=== PATIENT | male | born 1940 | race African-American/Black ===

== ENCOUNTER 2017-10-06 14:44 | Emergency (ER) | payer OTHER ==
[~2017-10-06] VITALS: Ht 180.3 cm; Wt 73.0 kg
[~2017-10-06 14:44] MED LIST: ESOM20CA PO; FINA5TAB11 PO; SUPHEDRIN; TAMS0.4C31 PO
[2017-10-06] MEDS ORDERED: SODIUM CHLORIDE 0.9% 1,000 ML IV ONE (15:20)
[2017-10-06 15:28] LABS: HEMATOCRIT. 31.1 % (42.0-52.0); HEMOGLOBIN. 10.4 g/dL (14.0-18.0); MEAN CORPUSCULAR HEMOGLOBIN 29.9 pg (28.0-32.0); MEAN CORPUSCULAR VOLUME 89.9 fL (80.0-94.0); MEAN PLATELET VOLUME 7.6 fl (7.4-10.4); PLATELET 297 x1000/uL (130-400); RED BLOOD CELL COUNT 3.46 mill/uL (4.7-6.1); RED CELL DISTRIBUTION WIDTH 13.2 % (11.6-14.6)
[2017-10-06 15:30] LABS: CHLORIDE 101 mEq/L (98-107)
[2017-10-06 15:32] LABS: INR 1.1; PARTIAL THROMBOPLASTIN TIME 27.6 sec (23.4-31.0); PROTHROMBIN TIME 11.4 sec (9.4-11.6)
[2017-10-06 15:50] LABS: PLATELET ESTIMATE NORMAL
[2017-10-06] MEDS ORDERED: IOHEXOL-300 100 ML BOTTLE ONE (18:45)
[2017-10-06] MEDS ORDERED: LEVOFLOXACIN 750MG PREMIX 150 ML IV ONE (19:37)
[2017-10-06 22:48] VITALS: BP 138/88
== END 2017-10-06 23:39 | disposition home or self-care (01) ==
LOC: ER 14:44
DX: R13.10 Dysphagia, unspecified (principal); R47.02 Dysphasia; D64.9 Anemia, unspecified; D72.829 Elevated white blood cell count, unspecified; Z92.3 Personal history of irradiation; Z85.89 Personal history of malignant neoplasm of other organs and systems; Z87.891 Personal history of nicotine dependence
CPT/HCPCS: 36415; 70491; 71045; 80053; 83690; 84146; 84484; 85025; 85610; 85730; 87040; 93005; 96361; 96365; 96366; 99285; J1956; J7030; Q9967

== ENCOUNTER 2018-04-28 17:55 | Inpatient (IN) | payer OTHER ==
[~2018-04-28] VITALS: Ht 172.7 cm; Wt 57.2 kg
[~2018-04-28 17:55] MED LIST changes: +ASPI-1079 PO; +ATOR-2 MT; +FERR-71 MT; -FINA5TAB11 PO; +FLUD0.1T MT; +LEVO75TA MT; +MIDO10TA MT; +MULT-1146 MT; +POTA99TA4 MT; +SAW/1TAB2 MT; +SENN1TAB8 MT; +SODI1TAB3 MT; -SUPHEDRIN; -TAMS0.4C31 PO
[2018-04-28 19:12] LABS: BASOPHILS % 0.1 % (0.0-2.0); HEMATOCRIT. 23.4 % (42.0-52.0); HEMOGLOBIN. 7.8 g/dL (14.0-18.0); LYMPHOCYTES % 7.4 % (20.0-50.0); MEAN CORPUSCULAR HEMOGLOBIN 29.9 pg (28.0-32.0); MEAN CORPUSCULAR VOLUME 89.1 fL (80.0-94.0); MEAN PLATELET VOLUME 9.3 fl (7.4-10.4); MONOCYTES % 7.3 % (2.0-8.0); NEUTROPHILS % 85.2 % (40.0-76.0); PLATELET 164 x1000/uL (130-400); RED BLOOD CELL COUNT 2.62 mill/uL (4.7-6.1); RED CELL DISTRIBUTION WIDTH 15.4 % (11.6-14.6)
[2018-04-28 19:19] LABS: CHLORIDE 98 mEq/L (98-107)
[2018-04-28] MEDS ORDERED: ENOXAPARIN 80MG/0.8ML SYR SUBCUT ONE (19:45)
[2018-04-28] MEDS ORDERED: ASPIRIN 325MG EC TABLET PO ONE (19:45)
[2018-04-29] VITALS (31 sets, daily range): BP systolic 94–149; BP diastolic 46–99
[2018-04-29] MEDS ORDERED: ASPIRIN 325MG TABLET PO NR (00:15)
[2018-04-29] MEDS: NITROGLYCERIN OINT 1GM/INCH UDPKT TD SCH ×3 (06:03→21:35)
[2018-04-29] MEDS ORDERED: IPRATROPIUM/ALBUTEROL 0.5-3(2.5)MG/3ML NEB HHN PRN (08:15)
[2018-04-29] MEDS: GUAIFENESIN 600MG ER TABLET PO SCH ×2 (08:51→21:35)
[2018-04-29] MEDS: FUROSEMIDE 40MG/4ML VIAL IVP SCH ×2 (08:52→16:28)
[2018-04-29] MEDS ORDERED: ENOXAPARIN 40MG/0.4ML SYR SUBCUT SCH (09:00)
[2018-04-29] MEDS ORDERED: METOPROLOL TARTRATE 25MG TABLET PO SCH (09:00)
[2018-04-29 09:09] LABS: BASOPHILS % 0.2 % (0.0-2.0); EOSINOPHILS % 0.3 % (0.0-5.0); HEMATOCRIT. 25.5 % (42.0-52.0); HEMOGLOBIN. 8.6 g/dL (14.0-18.0); LYMPHOCYTES % 15.2 % (20.0-50.0); MEAN CORPUSCULAR HEMOGLOBIN 29.7 pg (28.0-32.0); MEAN CORPUSCULAR VOLUME 88.5 fL (80.0-94.0); MEAN PLATELET VOLUME 9.5 fl (7.4-10.4); MONOCYTES % 9.3 % (2.0-8.0); PLATELET 147 x1000/uL (130-400); RED BLOOD CELL COUNT 2.88 mill/uL (4.7-6.1); RED CELL DISTRIBUTION WIDTH 14.9 % (11.6-14.6)
[2018-04-29 09:41] LABS: CHLORIDE 100 mEq/L (98-107)
[2018-04-29] MEDS: IRON SUCROSE COMPLEX 100 MG/5 ML ML IV SCH (10:06)
[2018-04-29 10:07] LABS: CREATINE KINASE 89 IU/L (39-308)
[2018-04-29] MEDS: OMEPRAZOLE 20MG CAPSULE EXTENDED RELEASE PO SCH (11:31)
[2018-04-29] MEDS: LEVOTHYROXINE SODIUM 75MCG TABLET PO SCH (11:31)
[2018-04-29] MEDS: FLUDROCORTISONE ACETATE 0.1MG TABLET PO SCH (11:33)
[2018-04-29 12:18] LABS: CREATINE KINASE MB FRACTION < 1.0 ng/mL (0.5-3.6)
[2018-04-29 12:47] LABS: CLARITY URINE CLOUDY (CLEAR); COLOR URINE YELLOW (YELLOW); KETONES URINE NEGATIVE (NEGATIVE); LEUKOCYTE ESTERASE URINE NEGATIVE (NEGATIVE); NITRITE URINE NEGATIVE (NEGATIVE); OCCULT BLOOD URINE NEGATIVE (NEGATIVE); PROTEIN URINE 1+ (NEGATIVE); SPECIFIC GRAVITY URINE 1.017 (1.005-1.030); UROBILINOGEN URINE 0.2 E.U./dL (0.2-1.0)
[2018-04-29 13:01] LABS: *AMPHETAMINES SCREEN URINE NEGATIVE (NEGATIVE); *BARBITURATES SCREEN URINE NEGATIVE (NEGATIVE); *BENZODIAZEPINES SCREEN URINE NEGATIVE (NEGATIVE); *COCAINE SCREEN URINE NEGATIVE (NEGATIVE); CANNABINOID URINE SCREEN NEGATIVE (NEGATIVE); METHADONE URINE SCREEN NEGATIVE (NEGATIVE); OPIATES URINE SCREEN NEGATIVE (NEGATIVE); PHENCYCLIDINE URINE SCREEN NEGATIVE (NEGATIVE)
[2018-04-29] MEDS: IPRATROPIUM/ALBUTEROL 0.5-3(2.5)MG/3ML NEB HHN SCH ×2 (16:58→20:10)
[2018-04-29] MEDS ORDERED: LEVOFLOXACIN 500MG PREMIX 100 ML IV NR (18:30)
[2018-04-30] VITALS (12 sets, daily range): BP systolic 102–152; BP diastolic 60–92
[2018-04-30] MEDS: IPRATROPIUM/ALBUTEROL 0.5-3(2.5)MG/3ML NEB HHN SCH ×4 (02:07→20:25)
[2018-04-30] MEDS: LEVOTHYROXINE SODIUM 75MCG TABLET PO SCH (06:19)
[2018-04-30] MEDS: OMEPRAZOLE 20MG CAPSULE EXTENDED RELEASE PO SCH (06:19)
[2018-04-30] MEDS: FUROSEMIDE 40MG/4ML VIAL IVP SCH ×2 (06:20→17:53)
[2018-04-30] MEDS: NITROGLYCERIN OINT 1GM/INCH UDPKT TD SCH ×3 (06:20→20:36)
[2018-04-30 07:31] LABS: BASOPHILS % 0.3 % (0.0-2.0); EOSINOPHILS % 0.5 % (0.0-5.0); HEMATOCRIT. 27.1 % (42.0-52.0); HEMOGLOBIN. 9.2 g/dL (14.0-18.0); LYMPHOCYTES % 14.8 % (20.0-50.0); MEAN CORPUSCULAR HEMOGLOBIN 29.7 pg (28.0-32.0); MEAN CORPUSCULAR VOLUME 87.5 fL (80.0-94.0); MEAN PLATELET VOLUME 8.7 fl (7.4-10.4); MONOCYTES % 8.7 % (2.0-8.0); NEUTROPHILS % 75.7 % (40.0-76.0); PLATELET 164 x1000/uL (130-400); RED CELL DISTRIBUTION WIDTH 14.6 % (11.6-14.6)
[2018-04-30 07:45] LABS: CHLORIDE 97 mEq/L (98-107)
[2018-04-30] MEDS: IRON SUCROSE COMPLEX 100 MG/5 ML ML IV SCH (08:52)
[2018-04-30] MEDS: GUAIFENESIN 600MG ER TABLET PO SCH ×2 (08:53→20:37)
[2018-04-30] MEDS: FLUDROCORTISONE ACETATE 0.1MG TABLET PO SCH (08:53)
[2018-04-30] MEDS ORDERED: POTASSIUM CHLORIDE 20MEQ TABLET SR PO SCH ×2 (09:15→21:00)
[2018-04-30] MEDS ORDERED: POTASSIUM CHLORIDE INJ 40 MEQ in DEXT 5% WATER 250 ML IV SCH (11:00)
[2018-04-30 12:08] LABS: PHOSPHORUS 2.7 mg/dL (2.5-4.9)
[2018-04-30] MEDS: ASPIRIN 81MG EC TABLET PO SCH (12:17)
[2018-04-30] MEDS: METOPROLOL TARTRATE 25MG TABLET PO SCH ×2 (12:17→20:37)
[2018-04-30] MEDS ORDERED: LACTULOSE 20G/30ML UDC PO PRN (14:15)
[2018-04-30] MEDS: DOCUSATE SODIUM 250MG CAPSULE PO SCH (17:53)
[2018-04-30] MEDS ORDERED: LEVOFLOXACIN 250MG PREMIX 50 ML IV SCH (18:00)
[2018-05-01] VITALS (11 sets, daily range): BP systolic 92–136; BP diastolic 67–85
[2018-05-01] MEDS: IPRATROPIUM/ALBUTEROL 0.5-3(2.5)MG/3ML NEB HHN SCH ×4 (01:27→20:46)
[2018-05-01] MEDS: NITROGLYCERIN OINT 1GM/INCH UDPKT TD SCH ×3 (06:00→21:04)
[2018-05-01] MEDS: LEVOTHYROXINE SODIUM 75MCG TABLET PO SCH (06:01)
[2018-05-01] MEDS: FUROSEMIDE 40MG/4ML VIAL IVP SCH ×2 (06:33→16:50)
[2018-05-01 06:40] LABS: BASOPHILS % 0.3 % (0.0-2.0); EOSINOPHILS % 1.1 % (0.0-5.0); HEMOGLOBIN. 9.7 g/dL (14.0-18.0); LYMPHOCYTES % 14.7 % (20.0-50.0); MEAN CORPUSCULAR HEMOGLOBIN 30.3 pg (28.0-32.0); MEAN CORPUSCULAR VOLUME 87.7 fL (80.0-94.0); MEAN PLATELET VOLUME 8.6 fl (7.4-10.4); NEUTROPHILS % 74.9 % (40.0-76.0); PLATELET 181 x1000/uL (130-400); RED CELL DISTRIBUTION WIDTH 14.8 % (11.6-14.6)
[2018-05-01 08:20] LABS: CHLORIDE 96 mEq/L (98-107)
[2018-05-01] MEDS ORDERED: POTASSIUM CHLORIDE 20MEQ TABLET SR PO SCH (09:00)
[2018-05-01] MEDS: IRON SUCROSE COMPLEX 100 MG/5 ML ML IV SCH (09:24)
[2018-05-01] MEDS: ASPIRIN 81MG EC TABLET PO SCH (09:25)
[2018-05-01] MEDS: FLUDROCORTISONE ACETATE 0.1MG TABLET PO SCH (09:25)
[2018-05-01] MEDS: METOPROLOL TARTRATE 25MG TABLET PO SCH ×2 (09:25→21:04)
[2018-05-01] MEDS: FAMOTIDINE 20MG TABLET PO SCH ×2 (09:25→16:50)
[2018-05-01] MEDS: GUAIFENESIN 600MG ER TABLET PO SCH ×2 (09:25→21:04)
[2018-05-01] MEDS: DOCUSATE SODIUM 250MG CAPSULE PO SCH (09:25)
[2018-05-01] MEDS: POTASSIUM CHLORIDE 20MEQ TABLET SR PO SCH ×3 (13:40→21:04)
[2018-05-01] MEDS: LEVOFLOXACIN 750MG PREMIX 150 ML IV SCH (18:19)
[2018-05-02] VITALS (12 sets, daily range): BP systolic 67–143; BP diastolic 43–88
[2018-05-02] MEDS: IPRATROPIUM/ALBUTEROL 0.5-3(2.5)MG/3ML NEB HHN SCH ×4 (02:45→20:30)
[2018-05-02 06:04] LABS: CHLORIDE 95 mEq/L (98-107)
[2018-05-02] MEDS: NITROGLYCERIN OINT 1GM/INCH UDPKT TD SCH (06:09)
[2018-05-02] MEDS: LEVOTHYROXINE SODIUM 75MCG TABLET PO SCH (06:09)
[2018-05-02] MEDS: FUROSEMIDE 40MG/4ML VIAL IVP SCH (06:09)
[2018-05-02 06:13] LABS: BASOPHILS % 0.4 % (0.0-2.0); EOSINOPHILS % 3.5 % (0.0-5.0); HEMATOCRIT. 30.3 % (42.0-52.0); HEMOGLOBIN. 10.3 g/dL (14.0-18.0); LYMPHOCYTES % 16.5 % (20.0-50.0); MEAN CORPUSCULAR HEMOGLOBIN 29.9 pg (28.0-32.0); MEAN CORPUSCULAR VOLUME 87.8 fL (80.0-94.0); MEAN PLATELET VOLUME 8.4 fl (7.4-10.4); MONOCYTES % 8.2 % (2.0-8.0); NEUTROPHILS % 71.4 % (40.0-76.0); PLATELET 189 x1000/uL (130-400); RED BLOOD CELL COUNT 3.45 mill/uL (4.7-6.1); RED CELL DISTRIBUTION WIDTH 14.4 % (11.6-14.6)
[2018-05-02] MEDS: METOPROLOL TARTRATE 25MG TABLET PO SCH ×2 (08:17→21:00)
[2018-05-02] MEDS: DOCUSATE SODIUM 250MG CAPSULE PO SCH (08:17)
[2018-05-02] MEDS: ASPIRIN 81MG EC TABLET PO SCH ×2 (08:18→17:20)
[2018-05-02] MEDS: FLUDROCORTISONE ACETATE 0.1MG TABLET PO SCH (08:18)
[2018-05-02] MEDS: FAMOTIDINE 20MG TABLET PO SCH ×2 (08:18→17:20)
[2018-05-02] MEDS: GUAIFENESIN 600MG ER TABLET PO SCH ×2 (08:18→21:31)
[2018-05-02] MEDS: POTASSIUM CHLORIDE 20MEQ TABLET SR PO SCH ×4 (08:18→21:31)
[2018-05-02] MEDS: ENOXAPARIN 40MG/0.4ML SYR SUBCUT SCH (12:12)
[2018-05-02] MEDS: LACTULOSE 20G/30ML UDC PO SCH ×3 (14:41→21:31)
[2018-05-02] MEDS ORDERED: POTASSIUM CHLORIDE 20MEQ TABLET SR PO NR (16:30)
[2018-05-02] MEDS: LEVOFLOXACIN 750MG PREMIX 150 ML IV SCH (17:20)
[2018-05-03] VITALS (14 sets, daily range): BP systolic 79–161; BP diastolic 34–89
[2018-05-03] MEDS: IPRATROPIUM/ALBUTEROL 0.5-3(2.5)MG/3ML NEB HHN SCH ×4 (01:59→21:10)
[2018-05-03] MEDS: LEVOTHYROXINE SODIUM 75MCG TABLET PO SCH (06:13)
[2018-05-03 06:30] LABS: BASOPHILS % 0.3 % (0.0-2.0); HEMATOCRIT. 32.7 % (42.0-52.0); HEMOGLOBIN. 10.9 g/dL (14.0-18.0); LYMPHOCYTES % 16.6 % (20.0-50.0); MEAN CORPUSCULAR HEMOGLOBIN 29.5 pg (28.0-32.0); MEAN CORPUSCULAR VOLUME 88.3 fL (80.0-94.0); MEAN PLATELET VOLUME 8.1 fl (7.4-10.4); MONOCYTES % 7.3 % (2.0-8.0); NEUTROPHILS % 71.8 % (40.0-76.0); PLATELET 195 x1000/uL (130-400); RED BLOOD CELL COUNT 3.71 mill/uL (4.7-6.1); RED CELL DISTRIBUTION WIDTH 14.9 % (11.6-14.6)
[2018-05-03 06:48] LABS: CHLORIDE 96 mEq/L (98-107)
[2018-05-03] MEDS: FAMOTIDINE 20MG TABLET PO SCH ×2 (08:15→17:50)
[2018-05-03] MEDS: DOCUSATE SODIUM 250MG CAPSULE PO SCH (08:15)
[2018-05-03] MEDS: ASPIRIN 81MG EC TABLET PO SCH ×2 (08:15→17:50)
[2018-05-03] MEDS: GUAIFENESIN 600MG ER TABLET PO SCH ×2 (08:15→21:31)
[2018-05-03] MEDS: FLUDROCORTISONE ACETATE 0.1MG TABLET PO SCH (08:15)
[2018-05-03] MEDS: POTASSIUM CHLORIDE 20MEQ TABLET SR PO SCH ×4 (08:15→21:31)
[2018-05-03] MEDS: METOPROLOL TARTRATE 25MG TABLET PO SCH ×2 (08:15→21:32)
[2018-05-03] MEDS: ENOXAPARIN 40MG/0.4ML SYR SUBCUT SCH (08:16)
[2018-05-03] MEDS: DEXT 5%/0.45% NACL 1000ML 1,000 ML IV SCH (10:15)
[2018-05-03] MEDS: LEVOFLOXACIN 250MG TABLET PO SCH (17:49)
[2018-05-04] VITALS (13 sets, daily range): BP systolic 79–159; BP diastolic 53–93
[2018-05-04] MEDS: DEXT 5%/0.45% NACL 1000ML 1,000 ML IV SCH ×2 (01:58→11:25)
[2018-05-04] MEDS: IPRATROPIUM/ALBUTEROL 0.5-3(2.5)MG/3ML NEB HHN SCH ×4 (02:29→20:10)
[2018-05-04] MEDS: LEVOTHYROXINE SODIUM 75MCG TABLET PO SCH (06:46)
[2018-05-04 07:23] LABS: BASOPHILS % 0.5 % (0.0-2.0); EOSINOPHILS % 4.2 % (0.0-5.0); HEMATOCRIT. 30.8 % (42.0-52.0); HEMOGLOBIN. 10.4 g/dL (14.0-18.0); LYMPHOCYTES % 16.9 % (20.0-50.0); MEAN CORPUSCULAR VOLUME 88.7 fL (80.0-94.0); MEAN PLATELET VOLUME 8.1 fl (7.4-10.4); MONOCYTES % 6.1 % (2.0-8.0); NEUTROPHILS % 72.3 % (40.0-76.0); PLATELET 188 x1000/uL (130-400); RED BLOOD CELL COUNT 3.48 mill/uL (4.7-6.1); RED CELL DISTRIBUTION WIDTH 14.9 % (11.6-14.6)
[2018-05-04] MEDS: METOPROLOL TARTRATE 25MG TABLET PO SCH (09:00)
[2018-05-04] MEDS: ASPIRIN 81MG EC TABLET PO SCH ×2 (09:07→16:18)
[2018-05-04] MEDS: DOCUSATE SODIUM 250MG CAPSULE PO SCH (09:07)
[2018-05-04] MEDS: GUAIFENESIN 600MG ER TABLET PO SCH ×2 (09:07→20:14)
[2018-05-04] MEDS: FAMOTIDINE 20MG TABLET PO SCH ×2 (09:07→16:18)
[2018-05-04] MEDS: ENOXAPARIN 40MG/0.4ML SYR SUBCUT SCH (09:07)
[2018-05-04] MEDS: POTASSIUM CHLORIDE 20MEQ TABLET SR PO SCH (09:07)
[2018-05-04] MEDS: FLUDROCORTISONE ACETATE 0.1MG TABLET PO SCH (09:07)
[2018-05-04 09:36] LABS: CHLORIDE 99 mEq/L (98-107)
[2018-05-04] MEDS ORDERED: BISACODYL 10MG SUPP PR NR (13:45)
[2018-05-04] MEDS ORDERED: LACTULOSE 20G/30ML UDC PO NR (13:45)
[2018-05-04] MEDS: HYDROCORTISONE 20MG TABLET PO SCH (16:18)
[2018-05-04] MEDS: LEVOFLOXACIN 250MG TABLET PO SCH (18:27)
[2018-05-04] MEDS ORDERED: HYDROCODONE/ACETAMINOPHEN 5/325MG TABLET PO PRN (19:45)
[2018-05-05] VITALS (10 sets, daily range): BP systolic 75–165; BP diastolic 50–95
[2018-05-05] MEDS: DEXT 5%/0.45% NACL 1000ML 1,000 ML IV SCH ×2 (01:39→12:15)
[2018-05-05] MEDS: IPRATROPIUM/ALBUTEROL 0.5-3(2.5)MG/3ML NEB HHN SCH ×3 (01:50→15:09)
[2018-05-05] MEDS: LEVOTHYROXINE SODIUM 75MCG TABLET PO SCH (06:11)
[2018-05-05] MEDS: ASPIRIN 81MG EC TABLET PO SCH (09:02)
[2018-05-05] MEDS: FLUDROCORTISONE ACETATE 0.1MG TABLET PO SCH (09:02)
[2018-05-05] MEDS: ENOXAPARIN 40MG/0.4ML SYR SUBCUT SCH (09:02)
[2018-05-05] MEDS: DOCUSATE SODIUM 250MG CAPSULE PO SCH (09:02)
[2018-05-05] MEDS: GUAIFENESIN 600MG ER TABLET PO SCH (09:02)
[2018-05-05] MEDS: FAMOTIDINE 20MG TABLET PO SCH (09:02)
[2018-05-05] MEDS: HYDROCORTISONE 20MG TABLET PO SCH (09:02)
[2018-05-05] MEDS ORDERED: NA PHOS,M-B/NA PHOS,DI-BA ENEMA 118ML PR NR (15:30)
[2018-05-05] MEDS ORDERED: SORBITOL 70% SOLN 30ML PO NR (15:30)
== END 2018-05-05 18:00 | DRG 280 ==
LOC: ER 17:55 → 3WST 19:39 → ENRESERV 22:51 → ER 23:23
PROVIDERS: ADMIT Internal Medicine; ATTEND Internal Medicine
PROC: 30233N1 Transfusion of Nonautologous Red Blood Cells into Peripheral Vein, Percutaneous Approach (ICD-10-PCS; principal; 2018-04-29)
DX: I21.4 Non-ST elevation (NSTEMI) myocardial infarction (principal); J18.9 Pneumonia, unspecified organism; I50.33 Acute on chronic diastolic (congestive) heart failure; J96.00 Acute respiratory failure, unspecified whether with hypoxia or hypercapnia; E43 Unspecified severe protein-calorie malnutrition; N17.0 Acute kidney failure with tubular necrosis; R64 Cachexia; E44.0 Moderate protein-calorie malnutrition; I13.0 Hypertensive heart and chronic kidney disease with heart failure and stage 1 through stage 4 chronic kidney disease, or unspecified chronic kidney disease; E27.40 Unspecified adrenocortical insufficiency; I42.9 Cardiomyopathy, unspecified; Z68.1 Body mass index [BMI] 19.9 or less, adult; E87.6 Hypokalemia; I95.1 Orthostatic hypotension; C10.9 Malignant neoplasm of oropharynx, unspecified; D64.9 Anemia, unspecified; I44.0 Atrioventricular block, first degree; E03.9 Hypothyroidism, unspecified; E78.5 Hyperlipidemia, unspecified; G90.9 Disorder of the autonomic nervous system, unspecified; I08.0 Rheumatic disorders of both mitral and aortic valves; I25.10 Atherosclerotic heart disease of native coronary artery without angina pectoris; R26.9 Unspecified abnormalities of gait and mobility; G90.8 Other disorders of autonomic nervous system; I48.91 Unspecified atrial fibrillation; K57.90 Diverticulosis of intestine, part unspecified, without perforation or abscess without bleeding; K59.09 Other constipation; N18.9 Chronic kidney disease, unspecified; N40.0 Benign prostatic hyperplasia without lower urinary tract symptoms; R13.10 Dysphagia, unspecified; Z79.899 Other long term (current) drug therapy; Z82.49 Family history of ischemic heart disease and other diseases of the circulatory system; Z85.818 Personal history of malignant neoplasm of other sites of lip, oral cavity, and pharynx; I25.2 Old myocardial infarction; Z87.01 Personal history of pneumonia (recurrent); Z87.891 Personal history of nicotine dependence; Z99.81 Dependence on supplemental oxygen; Z79.82 Long term (current) use of aspirin
CPT/HCPCS: 36415; 71045; 80048; 80305; 82088; 82550; 82553; 83735; 83880; 84100; 84145; 84244; 84443; 84484; 86850; 86900; 86920; 92523; 92610; 93005; 93306; 93970; 94640; 97162; 97166; 97530; 99285; J1650; J1940; J1956; J3480; J3490; J7050; J7060; J7620; P9016

== ENCOUNTER 2018-06-20 12:01 | Inpatient (IN) | payer MEDICARE, OTHER ==
[~2018-06-20] VITALS: Ht 167.6 cm; Wt 57.8 kg
[2018-06-20] MEDS ORDERED: SODIUM CHLORIDE 0.9% 1000ML BAG (SEPSIS BOLUS) IV ONE (13:15)
[2018-06-20 15:05] LABS: CLARITY URINE CLOUDY (CLEAR); COLOR URINE YELLOW (YELLOW); KETONES URINE NEGATIVE (NEGATIVE); LEUKOCYTE ESTERASE URINE 2+ (NEGATIVE); NITRITE URINE NEGATIVE (NEGATIVE); OCCULT BLOOD URINE 2+ (NEGATIVE); PH URINE 6.5 (4.5-8.0); PROTEIN URINE 2+ (NEGATIVE); SPECIFIC GRAVITY URINE 1.017 (1.005-1.030)
[2018-06-20 15:31] LABS: BASOPHILS % 0.2 % (0.0-2.0); EOSINOPHILS % 0.1 % (0.0-5.0); HEMOGLOBIN. 7.4 g/dL (14.0-18.0); LYMPHOCYTES % 11.4 % (20.0-50.0); MEAN CORPUSCULAR HEMOGLOBIN 29.4 pg (28.0-32.0); MEAN CORPUSCULAR VOLUME 87.7 fL (80.0-94.0); MEAN PLATELET VOLUME 9.3 fl (7.4-10.4); MONOCYTES % 6.7 % (2.0-8.0); NEUTROPHILS % 81.6 % (40.0-76.0); PLATELET 163 x1000/uL (130-400); RED BLOOD CELL COUNT 2.51 mill/uL (4.7-6.1); RED CELL DISTRIBUTION WIDTH 16.7 % (11.6-14.6)
[2018-06-20 15:38] LABS: CHLORIDE 101 mEq/L (98-107)
[2018-06-20 20:30] VITALS: BP 144/78
[2018-06-20 22:01] VITALS: BP 144/78
[2018-06-21] VITALS (12 sets, daily range): BP systolic 116–140; BP diastolic 59–80
[2018-06-21] MEDS: PANTOPRAZOLE 40MG DR TABLET PO SCH (06:42)
[2018-06-21] MEDS: LEVOTHYROXINE SODIUM 75MCG TABLET PO SCH (06:43)
[2018-06-21 07:16] LABS: MEAN CORPUSCULAR HEMOGLOBIN 29.3 pg (28.0-32.0); MEAN CORPUSCULAR VOLUME 85.5 fL (80.0-94.0); PLATELET 140 x1000/uL (130-400); RED BLOOD CELL COUNT 2.24 mill/uL (4.7-6.1)
[2018-06-21 08:06] LABS: HEMOGLOBIN 6.6 g/dL (14.0-18.0)
[2018-06-21 08:07] LABS: HEMATOCRIT 19.2 % (42.0-52.0)
[2018-06-21] MEDS ORDERED: POTASSIUM MT SCH (09:00)
[2018-06-21] MEDS ORDERED: POTASSIUM PO SCH (09:00)
[2018-06-21] MEDS: SODIUM CHLORIDE 1000MG TABLET PO SCH ×2 (09:00→17:00)
[2018-06-21] MEDS: MIDODRINE HCL 5MG TABLET PO SCH ×2 (09:46→17:00)
[2018-06-21] MEDS: FERROUS SULFATE 325MG TABLET PO SCH ×2 (09:46→17:00)
[2018-06-21] MEDS: FLUDROCORTISONE ACETATE 0.1MG TABLET PO SCH ×2 (09:46→17:00)
[2018-06-21] MEDS: ASPIRIN 81MG TABLET PO SCH (09:46)
[2018-06-21] MEDS: MULTIVITAMINS,THER W-MINERALS TABLET PO SCH (09:47)
[2018-06-21] MEDS: POTASSIUM CHLORIDE 20MEQ TABLET SR PO SCH (09:47)
[2018-06-21] MEDS ORDERED: INFLUENZA VIRUS VACCINE(AFLURIA) 0.5ML SYR IM ONE (12:00)
[2018-06-21 20:53] LABS: HEMOGLOBIN 8.1 g/dL (14.0-18.0)
[2018-06-21 20:59] LABS: INR 1.1
[2018-06-21] MEDS: ATORVASTATIN CALCIUM 40MG TABLET PO SCH (22:00)
[2018-06-22] VITALS: BP 132/78
[2018-06-22 04:00] VITALS: BP 119/64
[2018-06-22 06:26] LABS: BASOPHILS % 0.3 % (0.0-2.0); EOSINOPHILS % 0.5 % (0.0-5.0); HEMATOCRIT. 23.3 % (42.0-52.0); LYMPHOCYTES % 10.7 % (20.0-50.0); MEAN CORPUSCULAR HEMOGLOBIN 29.4 pg (28.0-32.0); MEAN CORPUSCULAR VOLUME 85.8 fL (80.0-94.0); MONOCYTES % 6.9 % (2.0-8.0); NEUTROPHILS % 81.6 % (40.0-76.0); PLATELET 161 x1000/uL (130-400); RED BLOOD CELL COUNT 2.71 mill/uL (4.7-6.1); RED CELL DISTRIBUTION WIDTH 15.7 % (11.6-14.6)
[2018-06-22 06:32] LABS: TOTAL IRON BINDING CAPACITY 216 ug/dL (250-450)
[2018-06-22] MEDS: PANTOPRAZOLE 40MG DR TABLET PO SCH (06:36)
[2018-06-22] MEDS: LEVOTHYROXINE SODIUM 75MCG TABLET PO SCH (06:36)
[2018-06-22 08:00] VITALS: BP 110/57
[2018-06-22] MEDS: DOCUSATE SODIUM 100MG CAPSULE PO SCH (09:10)
[2018-06-22] MEDS: MULTIVITAMINS,THER W-MINERALS TABLET PO SCH (09:10)
[2018-06-22] MEDS: ASPIRIN 81MG TABLET PO SCH (09:10)
[2018-06-22] MEDS: MIDODRINE HCL 5MG TABLET PO SCH ×2 (09:15→17:27)
[2018-06-22] MEDS: FERROUS SULFATE 325MG TABLET PO SCH ×2 (09:16→17:27)
[2018-06-22] MEDS: FLUDROCORTISONE ACETATE 0.1MG TABLET PO SCH ×2 (09:16→17:28)
[2018-06-22] MEDS: SODIUM CHLORIDE 1000MG TABLET PO SCH ×2 (09:16→17:28)
[2018-06-22] MEDS: POTASSIUM CHLORIDE 20MEQ TABLET SR PO SCH (09:16)
[2018-06-22 10:19] LABS: FOLIC ACID (FOLATE) SERUM 13.9 ng/mL (>5.38)
[2018-06-22 12:00] VITALS: BP 118/66
[2018-06-22] MEDS ORDERED: METOCLOPRAMIDE HCL 10MG/2ML VIAL IV SCH ×2 (12:00→14:00)
[2018-06-22 16:00] VITALS: BP 150/78
[2018-06-22] MEDS ORDERED: BISACODYL 5MG TABLET PO NR (16:15)
[2018-06-22] MEDS ORDERED: SORBITOL 70% SOLN 30ML PO NR (16:15)
[2018-06-22] MEDS ORDERED: METOCLOPRAMIDE HCL 10MG/2ML VIAL IV NR (16:15)
[2018-06-22] MEDS ORDERED: POTASSIUM CHLORIDE 20MEQ TABLET SR PO NR (16:15)
[2018-06-22 18:20] LABS: HEMOGLOBIN 9.3 g/dL (14.0-18.0)
[2018-06-22 20:00] VITALS: BP 155/82
[2018-06-22] MEDS ORDERED: IRON SUCROSE COMPLEX 100 MG in SODIUM CHLORIDE 0.9% 100 ML IV SCH (20:00)
[2018-06-22] MEDS: IRON SUCROSE COMPLEX 100 MG/5 ML ML IV SCH (20:43)
[2018-06-22] MEDS: ATORVASTATIN CALCIUM 40MG TABLET PO SCH (20:43)
[2018-06-23] VITALS: BP 120/74
[2018-06-23 04:00] VITALS: BP 132/73
[2018-06-23] MEDS ORDERED: METOCLOPRAMIDE HCL 10MG/2ML VIAL IV NR ×3 (05:00→12:00)
[2018-06-23] MEDS ORDERED: BISACODYL 5MG TABLET PO NR (05:00)
[2018-06-23] MEDS ORDERED: SORBITOL 70% SOLN 30ML PO NR (05:30)
[2018-06-23] MEDS: LEVOTHYROXINE SODIUM 75MCG TABLET PO SCH (05:51)
[2018-06-23] MEDS: PANTOPRAZOLE 40MG DR TABLET PO SCH (05:51)
[2018-06-23 07:23] LABS: CHLORIDE 106 mEq/L (98-107)
[2018-06-23 08:00] VITALS: BP 145/81
[2018-06-23 08:39] LABS: BG BASE EXCESS 3.3 mmol/L (-2.0-2.0); BG CARBOXYHEMOGLOBIN 0.3 % (0.5-1.5); BG FRACTION INSPIRED OXYGEN 28; BG HCO3 ACT 28.1 mmol/L (22.0-26.0); BG METHEMOGLOBIN 0.3 % (0.0-1.5); BG OXYHEMOGLOBIN 92.4 % (94.0-97.0); BG PCO2 43.7 mmHg (35.0-45.0); BG PH 7.426 (7.350-7.450); BG PO2 64.3 mmHg (75.0-100.0); BG SAMPLE SITE RIGHT RADIAL; BG VENT MODE NASAL CANNULA
[2018-06-23] MEDS: FLUDROCORTISONE ACETATE 0.1MG TABLET PO SCH ×2 (09:00→18:16)
[2018-06-23] MEDS: POTASSIUM CHLORIDE 20MEQ TABLET SR PO SCH (09:00)
[2018-06-23] MEDS: POLYETHYLENE GLYCOL 3350 (17GM) 1 DOSE PACK PO SCH (09:00)
[2018-06-23] MEDS ORDERED: BISACODYL 5MG TABLET PO PRN (09:00)
[2018-06-23] MEDS: SODIUM CHLORIDE 1000MG TABLET PO SCH ×2 (09:00→17:00)
[2018-06-23] MEDS: MIDODRINE HCL 5MG TABLET PO SCH ×2 (09:00→17:00)
[2018-06-23] MEDS: FERROUS SULFATE 325MG TABLET PO SCH ×2 (09:00→18:17)
[2018-06-23] MEDS: DOCUSATE SODIUM 100MG CAPSULE PO SCH (09:00)
[2018-06-23] MEDS: ASPIRIN 81MG TABLET PO SCH (09:00)
[2018-06-23] MEDS: MULTIVITAMINS,THER W-MINERALS TABLET PO SCH (09:00)
[2018-06-23 09:31] LABS: BASOPHILS % 0.3 % (0.0-2.0); EOSINOPHILS % 0.8 % (0.0-5.0); HEMATOCRIT. 24.9 % (42.0-52.0); HEMOGLOBIN. 8.4 g/dL (14.0-18.0); LYMPHOCYTES % 7.6 % (20.0-50.0); MEAN CORPUSCULAR HEMOGLOBIN 29.2 pg (28.0-32.0); MEAN CORPUSCULAR VOLUME 86.7 fL (80.0-94.0); MEAN PLATELET VOLUME 8.4 fl (7.4-10.4); MONOCYTES % 5.7 % (2.0-8.0); NEUTROPHILS % 85.6 % (40.0-76.0); PLATELET 191 x1000/uL (130-400); RED BLOOD CELL COUNT 2.87 mill/uL (4.7-6.1); RED CELL DISTRIBUTION WIDTH 16.3 % (11.6-14.6)
[2018-06-23] MEDS ORDERED: POTASSIUM CHLORIDE 20MEQ TABLET SR PO NR (11:30)
[2018-06-23] MEDS ORDERED: FUROSEMIDE 20MG/2ML VIAL IVP NR (11:30)
[2018-06-23 12:00] VITALS: BP 136/75
[2018-06-23] MEDS ORDERED: FENTANYL CITRATE/PF 50MCG/ML 2ML VIAL IV PRN (14:49)
[2018-06-23] MEDS ORDERED: MIDAZOLAM HCL 5 MG/5 ML VIAL IV PRN (14:50)
[2018-06-23] MEDS ORDERED: SIMETHICONE 40 MG/0.6 ML 30ML ONE (14:52)
[2018-06-23] MEDS ORDERED: MIDAZOLAM HCL 5 MG/5 ML VIAL ONE (14:55)
[2018-06-23] MEDS ORDERED: FENTANYL CITRATE/PF 50MCG/ML 2ML VIAL ONE (14:56)
[2018-06-23] MEDS: IPRATROPIUM/ALBUTEROL 0.5-3(2.5)MG/3ML NEB HHN SCH ×2 (15:40→21:59)
[2018-06-23] MEDS ORDERED: IPRATROPIUM/ALBUTEROL 0.5-3(2.5)MG/3ML NEB ONE (15:46)
[2018-06-23] MEDS ORDERED: SODIUM CHLORIDE 0.9% 10ML VIAL ONE (15:57)
[2018-06-23 17:29] LABS: HEMATOCRIT 27.6 % (42.0-52.0); HEMOGLOBIN 9.2 g/dL (14.0-18.0)
[2018-06-23] MEDS: IRON SUCROSE COMPLEX 100 MG/5 ML ML IV SCH (18:23)
[2018-06-23 20:00] VITALS: BP 154/83
[2018-06-23] MEDS: ATORVASTATIN CALCIUM 40MG TABLET PO SCH (21:17)
[2018-06-23] MEDS: MEROPENEM 1000MG in NORMAL SALINE 100ML IV SCH (21:18)
[2018-06-24] VITALS: BP 127/75
[2018-06-24] MEDS: IPRATROPIUM/ALBUTEROL 0.5-3(2.5)MG/3ML NEB HHN SCH ×4 (03:43→21:01)
[2018-06-24 04:00] VITALS: BP 127/70
[2018-06-24 04:50] LABS: CHLORIDE 105 mEq/L (98-107)
[2018-06-24 06:14] LABS: BASOPHILS % 0.1 % (0.0-2.0); EOSINOPHILS % 0.4 % (0.0-5.0); HEMATOCRIT. 22.7 % (42.0-52.0); HEMOGLOBIN. 7.8 g/dL (14.0-18.0); LYMPHOCYTES % 16.3 % (20.0-50.0); MEAN CORPUSCULAR HEMOGLOBIN 29.4 pg (28.0-32.0); MEAN CORPUSCULAR VOLUME 85.9 fL (80.0-94.0); MEAN PLATELET VOLUME 8.4 fl (7.4-10.4); MONOCYTES % 6.3 % (2.0-8.0); NEUTROPHILS % 76.9 % (40.0-76.0); PLATELET 185 x1000/uL (130-400); RED BLOOD CELL COUNT 2.65 mill/uL (4.7-6.1); RED CELL DISTRIBUTION WIDTH 15.9 % (11.6-14.6)
[2018-06-24] MEDS: PANTOPRAZOLE 40MG DR TABLET PO SCH (06:34)
[2018-06-24] MEDS: LEVOTHYROXINE SODIUM 75MCG TABLET PO SCH (06:34)
[2018-06-24 08:00] VITALS: BP 107/64
[2018-06-24] MEDS ORDERED: BARIUM SULFATE(VOLUMEN) 450 ML ORAL.SUSP ONE (08:05)
[2018-06-24] MEDS: POLYETHYLENE GLYCOL 3350 (17GM) 1 DOSE PACK PO SCH (09:00)
[2018-06-24] MEDS ORDERED: POTASSIUM CHLORIDE 20MEQ TABLET SR PO NR (09:45)
[2018-06-24] MEDS: MIDODRINE HCL 5MG TABLET PO SCH ×2 (10:18→17:39)
[2018-06-24] MEDS: POTASSIUM CHLORIDE 20MEQ TABLET SR PO SCH (10:18)
[2018-06-24] MEDS: FLUDROCORTISONE ACETATE 0.1MG TABLET PO SCH ×2 (10:19→17:41)
[2018-06-24] MEDS: DOCUSATE SODIUM 100MG CAPSULE PO SCH (10:19)
[2018-06-24] MEDS: ASPIRIN 81MG TABLET PO SCH (10:19)
[2018-06-24] MEDS: FERROUS SULFATE 325MG TABLET PO SCH ×2 (10:19→17:41)
[2018-06-24] MEDS: MEROPENEM 1000MG in NORMAL SALINE 100ML IV SCH ×2 (10:20→17:40)
[2018-06-24] MEDS: MULTIVITAMINS,THER W-MINERALS TABLET PO SCH (10:20)
[2018-06-24] MEDS: SODIUM CHLORIDE 1000MG TABLET PO SCH ×2 (10:21→17:41)
[2018-06-24] MEDS ORDERED: IOHEXOL-350 100 ML BOTTLE ONE (10:54)
[2018-06-24 12:00] VITALS: BP 143/81
[2018-06-24 16:00] VITALS: BP 128/70
[2018-06-24] MEDS: FINASTERIDE 5MG TABLET PO SCH (17:00)
[2018-06-24 20:00] VITALS: BP 134/75
[2018-06-24] MEDS: ATORVASTATIN CALCIUM 40MG TABLET PO SCH (22:18)
[2018-06-25] VITALS: BP 139/78
[2018-06-25] MEDS: IPRATROPIUM/ALBUTEROL 0.5-3(2.5)MG/3ML NEB HHN SCH ×3 (00:46→20:35)
[2018-06-25 04:00] VITALS: BP 135/72
[2018-06-25] MEDS: MEROPENEM 1000MG in NORMAL SALINE 100ML IV SCH ×2 (07:02→18:50)
[2018-06-25] MEDS: LEVOTHYROXINE SODIUM 75MCG TABLET PO SCH (07:02)
[2018-06-25] MEDS: PANTOPRAZOLE 40MG DR TABLET PO SCH (07:02)
[2018-06-25 08:00] VITALS: BP 138/85
[2018-06-25] MEDS: POLYETHYLENE GLYCOL 3350 (17GM) 1 DOSE PACK PO SCH (09:00)
[2018-06-25] MEDS: SODIUM CHLORIDE 1000MG TABLET PO SCH ×2 (09:15→21:14)
[2018-06-25] MEDS: FINASTERIDE 5MG TABLET PO SCH (09:16)
[2018-06-25] MEDS: POTASSIUM CHLORIDE 20MEQ TABLET SR PO SCH (09:16)
[2018-06-25] MEDS: FLUDROCORTISONE ACETATE 0.1MG TABLET PO SCH ×2 (09:16→18:51)
[2018-06-25] MEDS: MIDODRINE HCL 5MG TABLET PO SCH ×2 (09:16→18:50)
[2018-06-25] MEDS: MULTIVITAMINS,THER W-MINERALS TABLET PO SCH (09:16)
[2018-06-25] MEDS: FERROUS SULFATE 325MG TABLET PO SCH ×2 (09:16→18:50)
[2018-06-25] MEDS: ASPIRIN 81MG TABLET PO SCH (09:17)
[2018-06-25] MEDS: DOCUSATE SODIUM 100MG CAPSULE PO SCH (09:17)
[2018-06-25 12:00] VITALS: BP 152/90
[2018-06-25 12:16] LABS: BASOPHILS % 0.5 % (0.0-2.0); EOSINOPHILS % 3.2 % (0.0-5.0); HEMOGLOBIN. 8.4 g/dL (14.0-18.0); LYMPHOCYTES % 11.1 % (20.0-50.0); MEAN CORPUSCULAR HEMOGLOBIN 29.1 pg (28.0-32.0); MEAN PLATELET VOLUME 7.9 fl (7.4-10.4); MONOCYTES % 5.4 % (2.0-8.0); NEUTROPHILS % 79.8 % (40.0-76.0); PLATELET 222 x1000/uL (130-400)
[2018-06-25 12:30] LABS: PHOSPHORUS 2.6 mg/dL (2.5-4.9)
[2018-06-25 16:06] VITALS: BP 132/76
[2018-06-25 20:00] VITALS: BP 149/78
[2018-06-25] MEDS: ATORVASTATIN CALCIUM 40MG TABLET PO SCH (21:14)
[2018-06-26] VITALS: BP 162/92
[2018-06-26] MEDS: IPRATROPIUM/ALBUTEROL 0.5-3(2.5)MG/3ML NEB HHN SCH ×4 (00:35→21:33)
[2018-06-26 01:14] VITALS: BP 158/91
[2018-06-26 04:00] VITALS: BP 142/82
[2018-06-26] MEDS: MEROPENEM 1000MG in NORMAL SALINE 100ML IV SCH ×2 (05:29→17:35)
[2018-06-26] MEDS: PANTOPRAZOLE 40MG DR TABLET PO SCH (06:39)
[2018-06-26] MEDS: LEVOTHYROXINE SODIUM 75MCG TABLET PO SCH (06:39)
[2018-06-26 08:00] VITALS: BP 132/81
[2018-06-26] MEDS: SODIUM CHLORIDE 1000MG TABLET PO SCH ×2 (09:39→17:36)
[2018-06-26] MEDS: ASPIRIN 81MG TABLET PO SCH (09:39)
[2018-06-26] MEDS: POTASSIUM CHLORIDE 20MEQ TABLET SR PO SCH (09:39)
[2018-06-26] MEDS: FERROUS SULFATE 325MG TABLET PO SCH ×2 (09:39→17:35)
[2018-06-26] MEDS: FLUDROCORTISONE ACETATE 0.1MG TABLET PO SCH ×2 (09:39→17:35)
[2018-06-26] MEDS: MULTIVITAMINS,THER W-MINERALS TABLET PO SCH (09:39)
[2018-06-26] MEDS: FINASTERIDE 5MG TABLET PO SCH (09:39)
[2018-06-26] MEDS: MIDODRINE HCL 5MG TABLET PO SCH ×2 (09:41→17:36)
[2018-06-26] MEDS: DOCUSATE SODIUM 100MG CAPSULE PO SCH (09:41)
[2018-06-26] MEDS: POLYETHYLENE GLYCOL 3350 (17GM) 1 DOSE PACK PO SCH (09:42)
[2018-06-26 11:37] VITALS: BP 140/87
[2018-06-26 15:30] VITALS: BP 121/72
[2018-06-26] MEDS: ATORVASTATIN CALCIUM 40MG TABLET PO SCH (21:20)
[2018-06-27] VITALS: BP 139/94
[2018-06-27] MEDS: IPRATROPIUM/ALBUTEROL 0.5-3(2.5)MG/3ML NEB HHN SCH ×4 (01:01→21:29)
[2018-06-27 04:00] VITALS: BP 145/83
[2018-06-27] MEDS: MEROPENEM 1000MG in NORMAL SALINE 100ML IV SCH ×2 (05:57→17:52)
[2018-06-27] MEDS: PANTOPRAZOLE 40MG DR TABLET PO SCH (06:44)
[2018-06-27] MEDS: LEVOTHYROXINE SODIUM 75MCG TABLET PO SCH (06:44)
[2018-06-27 08:00] VITALS: BP 139/79
[2018-06-27] MEDS: FLUDROCORTISONE ACETATE 0.1MG TABLET PO SCH ×2 (08:48→17:53)
[2018-06-27] MEDS: MIDODRINE HCL 5MG TABLET PO SCH ×2 (08:49→17:52)
[2018-06-27] MEDS: FINASTERIDE 5MG TABLET PO SCH (08:50)
[2018-06-27] MEDS: ASPIRIN 81MG TABLET PO SCH (08:50)
[2018-06-27] MEDS: POTASSIUM CHLORIDE 20MEQ TABLET SR PO SCH (08:50)
[2018-06-27] MEDS: DOCUSATE SODIUM 100MG CAPSULE PO SCH (08:50)
[2018-06-27] MEDS: FERROUS SULFATE 325MG TABLET PO SCH ×2 (08:50→17:52)
[2018-06-27] MEDS: MULTIVITAMINS,THER W-MINERALS TABLET PO SCH (08:50)
[2018-06-27] MEDS: SODIUM CHLORIDE 1000MG TABLET PO SCH ×2 (08:50→17:50)
[2018-06-27] MEDS: POLYETHYLENE GLYCOL 3350 (17GM) 1 DOSE PACK PO SCH (09:41)
[2018-06-27 12:15] VITALS: BP 148/86
[2018-06-27 16:08] VITALS: BP 137/75
[2018-06-27 20:00] VITALS: BP 153/86
[2018-06-27] MEDS: ATORVASTATIN CALCIUM 40MG TABLET PO SCH (20:46)
[2018-06-28] VITALS: BP 128/70
[2018-06-28] MEDS: IPRATROPIUM/ALBUTEROL 0.5-3(2.5)MG/3ML NEB HHN SCH ×5 (01:59→20:15)
[2018-06-28 04:00] VITALS: BP 133/88
[2018-06-28] MEDS: MEROPENEM 1000MG in NORMAL SALINE 100ML IV SCH ×2 (05:48→18:47)
[2018-06-28] MEDS: PANTOPRAZOLE 40MG DR TABLET PO SCH (06:21)
[2018-06-28] MEDS: LEVOTHYROXINE SODIUM 75MCG TABLET PO SCH (06:21)
[2018-06-28 08:00] VITALS: BP 135/80
[2018-06-28] MEDS: POLYETHYLENE GLYCOL 3350 (17GM) 1 DOSE PACK PO SCH (09:00)
[2018-06-28] MEDS: POTASSIUM CHLORIDE 20MEQ TABLET SR PO SCH (09:51)
[2018-06-28] MEDS: FERROUS SULFATE 325MG TABLET PO SCH ×2 (09:51→18:47)
[2018-06-28] MEDS: SODIUM CHLORIDE 1000MG TABLET PO SCH ×2 (09:51→18:46)
[2018-06-28] MEDS: FLUDROCORTISONE ACETATE 0.1MG TABLET PO SCH ×2 (09:51→18:46)
[2018-06-28] MEDS: FINASTERIDE 5MG TABLET PO SCH (09:51)
[2018-06-28] MEDS: DOCUSATE SODIUM 100MG CAPSULE PO SCH (09:52)
[2018-06-28] MEDS: ASPIRIN 81MG TABLET PO SCH (09:55)
[2018-06-28] MEDS: MULTIVITAMINS,THER W-MINERALS TABLET PO SCH (09:55)
[2018-06-28] MEDS: MIDODRINE HCL 5MG TABLET PO SCH ×2 (09:55→18:46)
[2018-06-28 12:00] VITALS: BP 108/62
[2018-06-28 16:00] VITALS: BP 140/81
[2018-06-28] MEDS: LAMOTRIGINE 25MG TABLET PO SCH (18:50)
[2018-06-28 20:00] VITALS: BP 132/75
[2018-06-28] MEDS: ATORVASTATIN CALCIUM 40MG TABLET PO SCH (21:28)
[2018-06-29] VITALS: BP 147/75
[2018-06-29] MEDS: IPRATROPIUM/ALBUTEROL 0.5-3(2.5)MG/3ML NEB HHN SCH ×4 (01:40→21:19)
[2018-06-29 04:00] VITALS: BP 141/75
[2018-06-29] MEDS: LEVOTHYROXINE SODIUM 75MCG TABLET PO SCH (06:24)
[2018-06-29] MEDS: MEROPENEM 1000MG in NORMAL SALINE 100ML IV SCH ×2 (06:24→17:30)
[2018-06-29] MEDS: PANTOPRAZOLE 40MG DR TABLET PO SCH (06:24)
[2018-06-29 08:00] VITALS: BP 144/90
[2018-06-29] MEDS: FINASTERIDE 5MG TABLET PO SCH (09:07)
[2018-06-29] MEDS: DOCUSATE SODIUM 100MG CAPSULE PO SCH (09:07)
[2018-06-29] MEDS: ASPIRIN 81MG TABLET PO SCH (09:07)
[2018-06-29] MEDS: POTASSIUM CHLORIDE 20MEQ TABLET SR PO SCH (09:07)
[2018-06-29] MEDS: MULTIVITAMINS,THER W-MINERALS TABLET PO SCH (09:07)
[2018-06-29] MEDS: FLUDROCORTISONE ACETATE 0.1MG TABLET PO SCH ×2 (09:07→16:40)
[2018-06-29] MEDS: LAMOTRIGINE 25MG TABLET PO SCH (09:07)
[2018-06-29] MEDS: FERROUS SULFATE 325MG TABLET PO SCH ×2 (09:07→16:40)
[2018-06-29] MEDS: SODIUM CHLORIDE 1000MG TABLET PO SCH ×2 (09:11→16:40)
[2018-06-29] MEDS: MIDODRINE HCL 5MG TABLET PO SCH ×2 (09:11→17:31)
[2018-06-29] MEDS: POLYETHYLENE GLYCOL 3350 (17GM) 1 DOSE PACK PO SCH (09:12)
[2018-06-29 12:00] VITALS: BP 133/76
[2018-06-29 16:00] VITALS: BP 143/79
[2018-06-29 20:00] VITALS: BP 133/80
[2018-06-29] MEDS: ATORVASTATIN CALCIUM 40MG TABLET PO SCH (21:16)
[2018-06-30] VITALS: BP 126/77
[2018-06-30] MEDS: IPRATROPIUM/ALBUTEROL 0.5-3(2.5)MG/3ML NEB HHN SCH ×4 (00:45→21:30)
[2018-06-30 05:00] VITALS: BP 127/80
[2018-06-30] MEDS: LEVOTHYROXINE SODIUM 75MCG TABLET PO SCH (06:56)
[2018-06-30] MEDS: PANTOPRAZOLE 40MG DR TABLET PO SCH (06:56)
[2018-06-30] MEDS: MEROPENEM 1000MG in NORMAL SALINE 100ML IV SCH ×2 (06:56→17:31)
[2018-06-30] MEDS: ASPIRIN 81MG TABLET PO SCH (08:46)
[2018-06-30] MEDS: FINASTERIDE 5MG TABLET PO SCH (08:46)
[2018-06-30] MEDS: SODIUM CHLORIDE 1000MG TABLET PO SCH ×2 (08:46→17:31)
[2018-06-30] MEDS: FLUDROCORTISONE ACETATE 0.1MG TABLET PO SCH ×2 (08:46→17:31)
[2018-06-30] MEDS: MULTIVITAMINS,THER W-MINERALS TABLET PO SCH (08:46)
[2018-06-30] MEDS: DOCUSATE SODIUM 100MG CAPSULE PO SCH (08:46)
[2018-06-30] MEDS: FERROUS SULFATE 325MG TABLET PO SCH ×2 (08:46→17:30)
[2018-06-30] MEDS: POTASSIUM CHLORIDE 20MEQ TABLET SR PO SCH (08:46)
[2018-06-30] MEDS: LAMOTRIGINE 25MG TABLET PO SCH (08:46)
[2018-06-30] MEDS: MIDODRINE HCL 5MG TABLET PO SCH ×2 (08:47→17:31)
[2018-06-30] MEDS: POLYETHYLENE GLYCOL 3350 (17GM) 1 DOSE PACK PO SCH (08:47)
[2018-06-30 12:00] VITALS: BP 124/69
[2018-06-30 16:00] VITALS: BP 110/59
[2018-06-30] MEDS: ATORVASTATIN CALCIUM 40MG TABLET PO SCH (20:31)
[2018-06-30 20:37] VITALS: BP 108/63
[2018-07-01] VITALS: BP 132/75
[2018-07-01] MEDS: IPRATROPIUM/ALBUTEROL 0.5-3(2.5)MG/3ML NEB HHN SCH ×3 (01:23→15:28)
[2018-07-01 04:00] VITALS: BP 136/75
[2018-07-01] MEDS: PANTOPRAZOLE 40MG DR TABLET PO SCH (06:53)
[2018-07-01] MEDS: LEVOTHYROXINE SODIUM 75MCG TABLET PO SCH (06:53)
[2018-07-01 08:00] VITALS: BP 100/56
[2018-07-01] MEDS: SODIUM CHLORIDE 1000MG TABLET PO SCH (09:24)
[2018-07-01] MEDS: MULTIVITAMINS,THER W-MINERALS TABLET PO SCH (09:24)
[2018-07-01] MEDS: POTASSIUM CHLORIDE 20MEQ TABLET SR PO SCH (09:24)
[2018-07-01] MEDS: ASPIRIN 81MG TABLET PO SCH (09:24)
[2018-07-01] MEDS: FINASTERIDE 5MG TABLET PO SCH (09:24)
[2018-07-01] MEDS: FLUDROCORTISONE ACETATE 0.1MG TABLET PO SCH (09:24)
[2018-07-01] MEDS: LAMOTRIGINE 25MG TABLET PO SCH (09:25)
[2018-07-01] MEDS: FERROUS SULFATE 325MG TABLET PO SCH (09:25)
[2018-07-01] MEDS: MIDODRINE HCL 5MG TABLET PO SCH (09:27)
[2018-07-01 12:00] VITALS: BP 101/66
[2018-07-01] MEDS: POLYETHYLENE GLYCOL 3350 (17GM) 1 DOSE PACK PO SCH (12:37)
[2018-07-01] MEDS: DOCUSATE SODIUM 100MG CAPSULE PO SCH (12:37)
[2018-07-01] MEDS ORDERED: LEVOFLOXACIN 250MG TABLET PO SCH (14:00)
[2018-07-01 15:46] VITALS: BP 102/60
[2018-07-01 16:00] VITALS: BP 102/60
== END 2018-07-01 17:18 | disposition home or self-care (01) | DRG 872 ==
LOC: ER 13:22 → EDBEDREQTM 16:23 → EDBEDREQ 16:23 → EDBEDREQSVC 16:23 → EDBEDREQ 16:31 → EDBEDREQTM 16:31 → 6EST 17:05 → EDBEDREQTM 17:13 → EDBEDREQSVC 17:13 → ENRESERV 20:00 → 6WST 06-25 15:30
PROVIDERS: ADMIT Internal Medicine; ATTEND Internal Medicine
PROC: 30233N1 Transfusion of Nonautologous Red Blood Cells into Peripheral Vein, Percutaneous Approach (ICD-10-PCS; principal; 2018-06-21)
PROC: 0DB98ZX Excision of Duodenum, Via Natural or Artificial Opening Endoscopic, Diagnostic (ICD-10-PCS; 2018-06-23)
PROC: 0DB68ZX Excision of Stomach, Via Natural or Artificial Opening Endoscopic, Diagnostic (ICD-10-PCS; 2018-06-23)
PROC: 0DJD8ZZ Inspection of Lower Intestinal Tract, Via Natural or Artificial Opening Endoscopic (ICD-10-PCS; 2018-06-23)
DX: A41.50 Gram-negative sepsis, unspecified (principal); E46 Unspecified protein-calorie malnutrition; G93.40 Encephalopathy, unspecified; N39.0 Urinary tract infection, site not specified; D64.9 Anemia, unspecified; Z85.818 Personal history of malignant neoplasm of other sites of lip, oral cavity, and pharynx; E87.6 Hypokalemia; K29.70 Gastritis, unspecified, without bleeding; K29.80 Duodenitis without bleeding; K44.9 Diaphragmatic hernia without obstruction or gangrene; N40.1 Benign prostatic hyperplasia with lower urinary tract symptoms; B96.1 Klebsiella pneumoniae [K. pneumoniae] as the cause of diseases classified elsewhere; I25.10 Atherosclerotic heart disease of native coronary artery without angina pectoris; R33.8 Other retention of urine; E61.1 Iron deficiency; G90.8 Other disorders of autonomic nervous system; E78.00 Pure hypercholesterolemia, unspecified; I50.9 Heart failure, unspecified; K57.90 Diverticulosis of intestine, part unspecified, without perforation or abscess without bleeding; Z87.01 Personal history of pneumonia (recurrent); Z79.899 Other long term (current) drug therapy; Z92.3 Personal history of irradiation; Z68.20 Body mass index [BMI] 20.0-20.9, adult
CPT/HCPCS: 36415; 36600; 70551; 71045; 74177; 80048; 80051; 82270; 82310; 82375; 82607; 82728; 82746; 82805; 82962; 83540; 83550; 83605; 83735; 84100; 84132; 84443; 85014; 85018; 85027; 85049; 85384; 86850; 86900; 86920; 87077; 87186; 88305; 88312; 88313; 93005; 94640; 96374; 97116; 97162; 97530; 99291; A6261; C1893; J1940; J2185; J2250; J2765; J3010; J7030; J7040; J7050; J7620; P9016; Q9967; A4315